=== PATIENT | male | born 1955 | race Caucasian/White ===

== ENCOUNTER 2018-03-13 06:28 | Day surgery (SDC) | payer BC ==
[2018-03-13] MEDS ORDERED: Ringers Lactate 1,000 ML IV ONE (06:41)
[2018-03-13] MEDS ORDERED: LIDOCAINE 1% MPF 5 ML VIAL ONE (07:30)
[2018-03-13] MEDS ORDERED: PROPOFOL 200 MG/20 ML VIAL IV ONE (07:30)
--- NOTE | 2018-03-13 08:43 | ENDO RPT ---
[address], [address] COLONOSCOPY PROCEDURE REPORT EXAM DATE: 03/13/2018 PATIENT NAME: Dominick Rae MR #: [id number] BIRTHDATE: 1955 ATTENDING: Cody Sesay MD STATUS: outpatient FINANCIAL ANALYSIS MANAGER: Johanne Esquivel RN and Maria G Ellington INDICATIONS: The patient is a 62 yr old Male here for a colonoscopy due to bright red bleeding PROCEDURE PERFORMED: Colonoscopy MEDICATIONS: Per Anesthesia. ESTIMATED BLOOD LOSS: None CONSENT: The patient understands the risks and benefits of the procedure and understands that these risks include, but are not limited to: sedation, allergic reaction, infection, perforation and/or bleeding. Alternative means of evaluation and treatment include, among others: physical exam, x-rays, and/or surgical intervention. The patient elects to proceed with this endoscopic procedure. DESCRIPTION OF PROCEDURE: During intra-op preparation period all mechanical medical equipment was checked for proper function. Hand hygiene and appropriate measures for infection prevention was taken. Procedure, possible complications, alternatives including, but not limited to possibility of bleeding, perforation, tear, infection, sepsis, need for surgery, need for blood transfusion, were explained to the patient. After the risks, benefits and alternatives of the procedure were thoroughly explained, Informed consent was verified, confirmed and timeout was successfully executed by the treatment team. The patient was placed in the left lateral position. A digital rectal exam was performed and revealed external hemorrhoids. After appropriate level of anesthesia, the scope was passed. The EC-[id number] ([id number]) endoscope was introduced through the anus and advanced to the cecum, which was identified by the ileocecal valve. The quality of the prep was good. The instrument was then slowly withdrawn as the colon was fully examined. Scope withdrawal time was . COLON FINDINGS: Large internal and external hemorrhoids were found. Retroflexed views revealed no abnormalities and Retroflexed views revealed large hemorrhoids. The scope was then completely withdrawn from the patient and the procedure terminated. ADVERSE EVENTS: There were no complications. IMPRESSIONS: 1. Large internal and external hemorrhoids 2. Scattered diverticulum RECOMMENDATIONS: 1. follow-up: office 1 week(s) 2. hemorrhoidal hygiene 3. no seeds in diet RECALL: Return in 5 year(s) for Colonoscopy. Cody Sesay MD eSigned: Cody Sesay MD 03/13/2018 8:42 AM cc: Cody Sesay M.D. CPT CODES: ICD9 CODES: PATIENT NAME: Dominick RaeSiomara MR#: [id number]
[2018-03-13 08:46] VITALS: BP 137/84; TEMP 97.1; O2SAT 99
== END 2018-03-13 08:44 | disposition home or self-care (01) ==
LOC: OR 06:28
PROVIDERS: ATTEND Surgery
PROC: 0DJD8ZZ Inspection of Lower Intestinal Tract, Via Natural or Artificial Opening Endoscopic (ICD-10-PCS; principal; 2018-03-13 07:30)
DX: K64.8 Other hemorrhoids (principal); K64.4 Residual hemorrhoidal skin tags; K57.30 Diverticulosis of large intestine without perforation or abscess without bleeding; K59.00 Constipation, unspecified; Z88.0 Allergy status to penicillin; K62.5 Hemorrhage of anus and rectum

== ENCOUNTER 2019-06-19 00:41 | Emergency (ER) | payer BC, OTHER ==
[2019-06-19] MEDS ORDERED: KETOROLAC 30 MG/ML INJ ONE (03:02)
[2019-06-19] MEDS ORDERED: NA CHLORIDE 0.9% 1,000 ML ONE (03:10)
[2019-06-19 03:57] LABS: Absolute Lymphocytes (CBC) 3.6 K/uL (0.7-4.9); Basophils % 0.9 % (0-1.3); Lymphocytes % 45.6 % (15.3-44.8); MPV 9.4 fL (7.6-11.3); RBC Red Blood Cell Count 4.48 M/uL (4.33-5.43)
[2019-06-19 04:11] LABS: Potassium 3.7 mmol/L (3.5-5.1)
--- NOTE | 2019-06-19 04:11 | ER ---
Nurse's Notes [facility] Name: Dominick Rae Age: 63 yrs Sex: Male : 1955 Arrival Date: 06/19/2019 Time: 00:43 Bed 8 Private MD: Diagnosis: Headache Presentation: 06/19 00:57 Presenting complaint: Patient states: headache x 3 days. Reports taking aspirin with no aa1 relief. States, "The top of my head is just really sensitive to the touch and it radiates down to his neck. Transition of care: patient was not received from another setting of care. Onset of symptoms was June 16, 2019. Risk Assessment: Do you want to hurt yourself or someone else? Patient reports no desire to harm self or others. Initial Sepsis Screen: Does the patient meet any 2 criteria? No. Patient's initial sepsis screen is negative. Does the patient have a suspected source of infection? No. Patient's initial sepsis screen is negative. Care prior to arrival: None. 00:57 Method Of Arrival: Ambulatory aa1 00:57 Acuity: MIMA 4 aa1 Triage Assessment: 01:00 General: Appears in no apparent distress. comfortable, Behavior is calm, cooperative, aa1 appropriate for age. 01:22 Headache History: The patient has had previous headaches and this one is more severe cc3 than previous episodes. Pain: Complains of pain in left ear and left occipital area and left temporal area and left side of the back of head and left frontal area and left parietal area Also complains of no other associated symptoms. Historical: - Allergies: 01:00 PENICILLINS; aa1 - Home Meds: 01:00 Flomax 0.4 mg Oral cp24 1 cap once daily [Active]; aa1 - PMHx: 01:00 enlarged prostate; aa1 - PSHx: 01:00 Appendectomy; aa1 - Immunization history:: Flu vaccine is not up to date. - Social history:: Smoking status: Patient uses tobacco products, smokes one-half pack cigarettes per day. - Ebola Screening: : Patient denies exposure to infectious person Patient denies travel to an Ebola-affected area in the 21 days before illness onset. Screenin:22 Abuse screen: Denies threats or abuse. Denies injuries from another. Nutritional cc3 screening: No deficits noted. Tuberculosis screening: No symptoms or risk factors identified. Fall Risk Ambulatory Aid- None/Bed Rest/Nurse Assist (0 pts). Gait- Normal/Bed Rest/Wheelchair (0 pts) Mental Status- Oriented to own ability (0 pts). Assessment: 01:22 General: Appears in no apparent distress. uncomfortable, Behavior is calm, cooperative, cc3 appropriate for age. Pain: Complains of pain in left occipital area and left temporal area and left side of the back of head and left frontal area and left parietal area Pain currently is 5 out of 10 on a pain scale. Quality of pain is described as aching, Pain began 2-3 days ago. Neuro: Level of Consciousness is awake, alert, obeys commands, Oriented to person, place, time, situation, Appropriate for age. Cardiovascular: Denies chest pain, Heart tones S1 S2 present Capillary refill < 3 seconds in bilateral fingers Patient's skin is warm and dry. Respiratory: Airway is patent Respiratory effort is even, unlabored, Respiratory pattern is regular, symmetrical, Breath sounds are clear bilaterally. GI: Abdomen is round non-distended. : No signs and/or symptoms were reported regarding the genitourinary system. EENT: No signs and/or symptoms were reported regarding the EENT system. Derm: Skin is intact, is healthy with good turgor, Skin is pink, warm \\T\\ dry. normal. Musculoskeletal: Circulation, motion, and sensation intact. Range of motion: intact in all extremities. 02:10 Reassessment: Patient appears in no apparent distress at this time. Patient and/or cc3 family updated on plan of care and expected duration. Pain level reassessed. Patient is alert, oriented x 3, equal unlabored respirations, skin warm/dry/pink. Patient came back from CT scan department, awaiting result. 03:31 Reassessment: Patient appears in no apparent distress at this time. Patient and/or cc3 family updated on plan of care and expected duration. Pain level reassessed. Patient is alert, oriented x 3, equal unlabored respirations, skin warm/dry/pink. 04:28 Reassessment: Patient appears in no apparent distress at this time. Patient and/or cc3 family updated on plan of care and expected duration. Pain level reassessed. Patient is alert, oriented x 3, equal unlabored respirations, skin warm/dry/pink. ROBBIN Barajas discharged the patient home with prescriptions given. IV cannula removed and patient left ER vitally stable and ambulatory with his . No valuables left in the patient's room. Patient denies pain at this time. Patient states feeling better. Patient states symptoms have improved. Vital Signs: 01:00 BP 126 / 82; Pulse 57; Resp 16; Temp 98.1; Pulse Ox 97% on R/A; Weight 77.11 kg; Height aa1 5 ft. 8 in. (172.72 cm); Pain 5/10; 02:18 BP 127 / 88; Pulse 62; Resp 15 S; Pulse Ox 96% on R/A; cc3 03:20 BP 125 / 84; Pulse 58; Resp 16 S; Pulse Ox 97% on R/A; cc3 04:15 BP 120 / 77; Pulse 61; Resp 16 S; Pulse Ox 96% on R/A; Pain 0/10; cc3 01:00 Body Mass Index 25.85 (77.11 kg, 172.72 cm) aa1 David Coma Score: 04:12 Eye Response: spontaneous(4). Verbal Response: oriented(5). Motor Response: obeys snw commands(6). Total: 15. ED Course: 00:43 Patient arrived in ED. ag3 00:59 Triage completed. aa1 01:00 Arm band placed on right wrist. aa1 01:22 [facility]. snw 01:22 Carlos Ortiz MD is Attending Physician. snw 01:22 Marisela Quiroz is Primary Nurse. cc3 01:22 Patient has correct armband on for positive identification. Bed in low position. Call cc3 light in reach. Side rails up X 1. Pulse ox on. NIBP on. 02:26 CT Head Brain wo Cont In Process Unspecified. EDMS 02:27 CT completed. Patient tolerated procedure well. Patient moved to CT via wheelchair. Patient moved back from CT. 03:15 Inserted saline lock: 20 gauge in right antecubital area, using aseptic technique. cc3 Blood collected. 04:09 Parvez Arreaga MD is Referral Physician. snw 04:27 No provider procedures requiring assistance completed. IV discontinued, intact, cc3 bleeding controlled, No redness/swelling at site. Pressure dressing applied. Administered Medications: 03:07 CANCELLED (Other Intervention Used): TORadol 30 mg IM once snw 03:15 Drug: TORadol - Ketorolac 15 mg Route: IVP; Site: right antecubital; cc3 04:15 Follow up: Response: No adverse reaction; Pain is decreased cc3 03:15 Drug: NS 0.9% 1000 ml Route: IV; Rate: 1 bolus; Site: right antecubital; cc3 04:15 Follow up: Response: No adverse reaction; IV Status: Completed infusion; IV Intake: cc3 1000ml Intake: 04:15 IV: 1000ml; Total: 1000ml. cc3 Outcome: 04:10 Discharge ordered by MD. snw 04:28 Discharged to home ambulatory, with family. cc3 04:28 Condition: stable 04:28 Discharge instructions given to patient, family, Instructed on discharge instructions, follow up and referral plans. medication usage, Demonstrated understanding of instructions, follow-up care, medications, Prescriptions given X 2. 04:31 Patient left the ED. cc3 Signatures: Dispatcher [employer] EDMS Odalis Caceres RN RN aa1 Jenn Dougherty, MANAGER UNION-C MANAGER UNION-Csnw Gomez Casper Charlene cc3 Vanna Lomax3
--- NOTE | 2019-06-19 04:12 | EDPHYS ---
Physician Documentation [facility] Name: Dominick Rae Age: 63 yrs Sex: Male : 1955 Arrival Date: 06/19/2019 Time: 00:43 Bed 8 Private MD: ED Physician Carlos Ortiz HPI: 06/19 01:44 This 63 yrs old Male presents to ER via Ambulatory with complaints of snw Headache. 01:44 The patient complains of pain to the top of head and left side of head and face. The snw patient describes the headache as tenderness. Onset: The symptoms/episode began/occurred gradually, 2 day(s) ago, and became persistent. Associated signs and symptoms: Pertinent positives: dizziness. Severity of symptoms: At its worst the pain was moderate. Headache History: Denies prior headaches. The symptoms are alleviated by nothing. The patient has experienced a previous episode. The patient has not recently seen a physician, the patient's primary care provider is Dr. Dr. Gan. Historical: - Allergies: 01:00 PENICILLINS; aa1 - Home Meds: 01:00 Flomax 0.4 mg Oral cp24 1 cap once daily [Active]; aa1 - PMHx: 01:00 enlarged prostate; aa1 - PSHx: 01:00 Appendectomy; aa1 - Immunization history:: Flu vaccine is not up to date. - Social history:: Smoking status: Patient uses tobacco products, smokes one-half pack cigarettes per day. - Ebola Screening: : Patient denies exposure to infectious person Patient denies travel to an Ebola-affected area in the 21 days before illness onset. ROS: 01:43 Constitutional: Negative for fever, chills, and weight loss, Eyes: Negative for injury, snw pain, redness, and discharge, ENT: Negative for injury, pain, and discharge, Neck: Negative for injury, pain, and swelling, Cardiovascular: Negative for chest pain, palpitations, and edema, Respiratory: Negative for shortness of breath, cough, wheezing, and pleuritic chest pain, Abdomen/GI: Negative for abdominal pain, nausea, vomiting, diarrhea, and constipation, Back: Negative for injury and pain, : Negative for injury, bleeding, discharge, and swelling, MS/Extremity: Negative for injury and deformity, Skin: Negative for injury, rash, and discoloration. 01:43 Psych: Negative for depression, anxiety, suicide ideation, homicidal ideation, and hallucinations. 01:43 Neuro: Positive for headache, of the left parietal area, left frontal area, left side of the back of head, left temporal area, left occipital area and left ear. Exam: :43 Constitutional: This is a well developed, well nourished patient who is awake, alert, snw and in no acute distress. Head/Face: Normocephalic, atraumatic. Eyes: Pupils equal round and reactive to light, extra-ocular motions intact. Lids and lashes normal. Conjunctiva and sclera are non-icteric and not injected. Cornea within normal limits. Periorbital areas with no swelling, redness, or edema. ENT: Nares patent. No nasal discharge, no septal abnormalities noted. Tympanic membranes are normal and external auditory canals are clear. Oropharynx with no redness, swelling, or masses, exudates, or evidence of obstruction, uvula midline. Mucous membranes moist. Neck: Trachea midline, no thyromegaly or masses palpated, and no cervical lymphadenopathy. Supple, full range of motion without nuchal rigidity, or vertebral point tenderness. No Meningismus. Chest/axilla: Normal chest wall appearance and motion. Nontender with no deformity. No lesions are appreciated. Cardiovascular: Regular rate and rhythm with a normal S1 and S2. No gallops, murmurs, or rubs. Normal PMI, no JVD. No pulse deficits. Respiratory: Lungs have equal breath sounds bilaterally, clear to auscultation and percussion. No rales, rhonchi or wheezes noted. No increased work of breathing, no retractions or nasal flaring. Abdomen/GI: Soft, non-tender, with normal bowel sounds. No distension or tympany. No guarding or rebound. No evidence of tenderness throughout. Back: No spinal tenderness. No costovertebral tenderness. Full range of motion. Skin: Warm, dry with normal turgor. Normal color with no rashes, no lesions, and no evidence of cellulitis. MS/ Extremity: Pulses equal, no cyanosis. Neurovascular intact. Full, normal range of motion. Neuro: Awake and alert, GCS 15, oriented to person, place, time, and situation. Cranial nerves II-XII grossly intact. Motor strength 5/5 in all extremities. Sensory grossly intact. Cerebellar exam normal. Normal gait. Psych: Awake, alert, with orientation to person, place and time. Behavior, mood, and affect are within normal limits. Vital Signs: 01:00 BP 126 / 82; Pulse 57; Resp 16; Temp 98.1; Pulse Ox 97% on R/A; Weight 77.11 kg; Height aa1 5 ft. 8 in. (172.72 cm); Pain 5/10; 02:18 BP 127 / 88; Pulse 62; Resp 15 S; Pulse Ox 96% on R/A; cc3 03:20 BP 125 / 84; Pulse 58; Resp 16 S; Pulse Ox 97% on R/A; cc3 04:15 BP 120 / 77; Pulse 61; Resp 16 S; Pulse Ox 96% on R/A; Pain 0/10; cc3 01:00 Body Mass Index 25.85 (77.11 kg, 172.72 cm) aa1 [place] Coma Score: 04:12 Eye Response: spontaneous(4). Verbal Response: oriented(5). Motor Response: obeys snw commands(6). Total: 15. MDM: 01:28 Patient medically screened. snw 04:12 Data reviewed: vital signs, nurses notes. Data interpreted: Pulse oximetry: on room air snw is 97 %. Interpretation: normal. Counseling: I had a detailed discussion with the patient and/or guardian regarding: the historical points, exam findings, and any diagnostic results supporting the discharge/admit diagnosis, lab results, radiology results, the need for outpatient follow up, to return to the emergency department if symptoms worsen or persist or if there are any questions or concerns that arise at home. Special discussion: Based on the history and exam findings, there is no indication for further emergent testing or inpatient evaluation. I discussed with the patient/guardian the need to see the neurologist for further evaluation of the symptoms. I discussed with the patient/guardian the need to see the primary care provider for further evaluation of the symptoms. 06/19 03:07 Order name: CBC with Diff snw 06/19 03:07 Order name: Chem 7; Complete Time: 04:13 snw 06/19 01:37 Order name: CT Head Brain wo Cont snw 06/19 03:07 Order name: Sed Rate snw Administered Medications: 03:07 CANCELLED (Other Intervention Used): TORadol 30 mg IM once snw 03:15 Drug: TORadol - Ketorolac 15 mg Route: IVP; Site: right antecubital; cc3 04:15 Follow up: Response: No adverse reaction; Pain is decreased cc3 03:15 Drug: NS 0.9% 1000 ml Route: IV; Rate: 1 bolus; Site: right antecubital; cc3 04:15 Follow up: Response: No adverse reaction; IV Status: Completed infusion; IV Intake: cc3 1000ml Disposition: 05:15 Co-signature as Attending Physician, Carlos Ortiz MD Available for consultation at ps1 all times . Disposition: 06/19/19 04:10 Discharged to Home. Impression: Headache. - Condition is Stable. - Discharge Instructions: Dizziness, General Headache Without Cause, Rehydration, Adult. - Prescriptions for Fiorinal 50- 325-40 mg Oral Capsule - take 1 capsule by ORAL route every 4 hours As needed - not to exceed 6 capsules per day; 18 capsule. Zyrtec 10 mg Oral Tablet - take 1 tablet by ORAL route once daily As needed; 20 tablet. - Medication Reconciliation Form, Thank You Letter, Antibiotic Education, Prescription Opioid Use form. - Follow up: Private Physician; When: Tomorrow; Reason: Recheck today's complaints, Re-evaluation by your physician. Follow up: Parvez Arreaga MD; When: 5 - 6 days; Reason: Recheck today's complaints, Continuance of care. - Problem is new. - Symptoms are unchanged. Signatures: Dispatcher [employer] EDMS Odalis Caceres RN RN aa1 Jenn Dougherty, PATYC MANAGER OF REGULATORY AFFAIRS-Carlos Lynn MD MD ps1 Marisela Quiroz cc3 Corrections: (The following items were deleted from the chart) 03:07 02:55 TORadol 30 mg IM once ordered. snw snw 03:07 03:06 TORadol 30 mg IM once ordered. snw snw 04:31 04:10 06/19/2019 04:10 Discharged to Home. Impression: Headache. Condition is Stable. cc3 Forms are Medication Reconciliation Form, Thank You Letter, Antibiotic Education, Prescription Opioid Use. Follow up: Private Physician; When: Tomorrow; Reason: Recheck today's complaints, Re-evaluation by your physician. Follow up: Parvez Arreaga; When: 5 - 6 days; Reason: Recheck today's complaints, Continuance of care. Problem is new. Symptoms are unchanged. snw
[2019-06-19 05:06] VITALS: BP 126/82; TEMP 98.1; O2SAT 97
--- NOTE | 2019-06-19 10:46 | RAD REPORT ---
EXAM DESCRIPTION: Head Brain Wo Cont CLINICAL HISTORY: 63 years Male headache/dizziness COMPARISON: None TECHNIQUE: Contiguous axial images of the brain were obtained without the administration of intraven ous contrast.This exam was performed according to our departmental dose-optimization program which in cludes use of Automated Exposure Control, adjustment of the mA and/or kV according to patient size an d/or use of iterative reconstruction technique. FINDINGS: Brain: No acute intracranial hemorrhage. No extra-axial collection. No mass effect or kory iation. Mild prominence of the frontoparietal sulci. Confluent periventricular and subcortical whit e matter hypodensity is noted. Ventricles: Within normal limits in size Globes and orbits: No acute abnormality. Bones: No acute osseous finding. Paranasal sinuses: Paranasal sinuses are clear. Mastoid air cells: Well pneumatized. Soft tissues: Within normal limits IMPRESSION: No acute intracranial hemorrhage, hydrocephalus or herniation. Mild cerebral volume loss and chronic small vessel ischemic changes. If persistent clinical concern for acute ischemia, consider MRI brain without contrast for further ev aluation. Electronically signed by: Kyle Land DO 06/19/2019 2:31 AM CDT Due to temporary technical issues with the PACS/Fluency reporting system, reports are being signed by the in house radiologist as a courtesy to ensure prompt reporting. The interpreting radiologist is f ully responsible for the content of the report.
== END 2019-06-19 04:31 | disposition home or self-care (01) ==
LOC: ER 00:41
DX: R51 Headache (principal); F17.210 Nicotine dependence, cigarettes, uncomplicated; N40.0 Benign prostatic hyperplasia without lower urinary tract symptoms; Z88.0 Allergy status to penicillin
CPT/HCPCS: 96361; 85025; 80048; 36415; 85652; 70450; 96374; 99284; J7030

== ENCOUNTER 2022-08-04 03:46 | Emergency (ER) | payer OTHER ==
[2022-08-04 04:35] LABS: Absolute Lymphocytes (CBC) 1.7 K/uL (0.7-4.9); Hematocrit 43.1 % (39.6-49.0); Lymphocytes % 24.9 % (15.3-44.8); MCV 92.5 fL (80-100); MPV 8.3 fL (7.6-11.3); RBC Red Blood Cell Count 4.66 M/uL (4.33-5.43)
[2022-08-04 04:55] LABS: Albumin 3.8 g/dL (3.4-5.0); Bilirubin Total 0.3 mg/dL (0.2-1.0); Potassium 3.6 mmol/L (3.5-5.1); Protein, Total 7.6 g/dL (6.4-8.2)
[2022-08-04 05:06] LABS: Urine Blood Negative (Negative); Urine Glucose Negative (Negative); Urine Protein Negative (Negative)
[2022-08-04] MEDS ORDERED: MORPHINE 4 MG/ML SYR ONE (06:30)
[2022-08-04] MEDS ORDERED: ONDANSETRON 4 MG/2 ML VIAL ONE (06:30)
--- NOTE | 2022-08-04 08:06 | RAD REPORT ---
EXAM DESCRIPTION: CT - Abdomen Pelvis W Contrast - 08/04/2022 7:28 am CLINICAL HISTORY: Abdominal pain, acute, nonlocalized COMPARISON: CT ABD PELVIS W CONTRAST dated 12/27/2011 TECHNIQUE: Biphasic, helical CT imaging of the abdomen and pelvis was performed following 100 ml non -ionic IV contrast. Oral contrast: No. All CT scans are performed using dose optimization technique as appropriate and may include automated exposure control or mA/KV adjustment according to patient size. FINDINGS: No suspicious findings in the lung bases. Small 4-5 mm nodule posterior right lung base crane s not change from comparison. The liver, spleen, and pancreas show no suspicious findings. Gallbladder and biliary tree are also wi thout suspicious finding. Renal function is symmetric. No pyelonephritis, obstruction or acute renal finding seen. Patient has 2 abutting cyst in the upper pole of the left kidney. The more central cystic 2 centimeter shows isha gn characteristics. The larger abutting cyst is 3.2 cm and has a slightly thickened enhancing wall. T his is new from 2012. This is still likely benign but needs ongoing surveillance. No calcification. N o bladder abnormalities. No adrenal abnormalities. Small hiatal hernia is present. No acute gastric finding. No acute small bowel abnormality identified . Surgical history indicates appendectomy. There has been more involved partial resection of or surge ry in the region of the cecum. There is no active process at this site. Patient has very pronounced s igmoid diverticulosis but no diverticulitis. An active GI process is not seen. No free air, free fluid or inflammatory stranding. No mass or bulky lymphadenopathy. Patient has s mall bilateral fat filled inguinal hernias. These are not substantially different in size from 2012. No congestion or edema. No rent or tear of the abdominal wall in each lower quadrant. No acute bone finding. Bony degenerative changes are present. No acute vascular finding. Patient has aortic aneurysmal dilatation at the level of the XAVIER measuring 2.5 cm AP x 2.9 cm TR. IMPRESSION: Bilateral fat filled inguinal hernias are present similar in size to the 2012 comparison . No bowel involvement. No congestion or edema. No active process seen in either hernia or adjacent a bdominal wall. Complex cyst upper pole left kidney, new from 2012, warranting ongoing surveillance. Follow-up CT im aging in 6 months could be performed to monitor for any growth or changes in imaging characteristics.
--- NOTE | 2022-08-04 08:43 | EDPHYS ---
Physician Documentation [facility] Name: Dominick Rae Age: 67 yrs Sex: Male : 1955 Arrival Date: 08/04/2022 Time: 03:51 Bed 7 Private MD: Manohar Tovar HPI: 08/04 06:20 This 67 yrs old Male presents to ER via Ambulatory with complaints of cale Abdominal Pain. 06:20 The patient presents with abdominal pain right lower quadrant. Onset: The cale symptoms/episode began/occurred 2 day(s) ago. The symptoms do not radiate. Associated signs and symptoms: none. The symptoms are described as crampy. Modifying factors: The symptoms are alleviated by nothing, the symptoms are aggravated by movement. The patient has experienced similar episodes in the past, several times. Historical: - Allergies: 04:16 PENICILLINS; aa9 - PMHx: 04:17 None; aa9 - PSHx: 04:17 Appendectomy; aa9 - Immunization history:: Client reports receiving the 1st dose of the Covid vaccine. - Social history:: Smoking status: Patient/guardian denies using tobacco, the patient reports quitting approximately 1 years ago. - Family history:: not pertinent. ROS: 06:20 Constitutional: Negative for fever, chills, and weight loss, Eyes: Negative for injury, cale pain, redness, and discharge, ENT: Negative for injury, pain, and discharge, Neck: Negative for injury, pain, and swelling, Cardiovascular: Negative for chest pain, palpitations, and edema, Respiratory: Negative for shortness of breath, cough, wheezing, and pleuritic chest pain, Back: Negative for injury and pain, : Negative for injury, bleeding, discharge, and swelling, MS/Extremity: Negative for injury and deformity, Skin: Negative for injury, rash, and discoloration, Neuro: Negative for headache, weakness, numbness, tingling, and seizure, Psych: Negative for depression, anxiety, suicide ideation, homicidal ideation, and hallucinations, Allergy/Immunology: Negative for hives, rash, and allergies, Endocrine: Negative for neck swelling, polydipsia, polyuria, polyphagia, and marked weight changes, Hematologic/Lymphatic: Negative for swollen nodes, abnormal bleeding, and unusual bruising. 06:20 Abdomen/GI: Positive for abdominal pain, of the anterior aspect of right lateral abdomen, posterior aspect of right lateral abdomen and right lower quadrant. Exam: 06:20 Constitutional: This is a well developed, well nourished patient who is awake, alert, cale and in no acute distress. Head/Face: Normocephalic, atraumatic. Eyes: Pupils equal round and reactive to light, extra-ocular motions intact. Lids and lashes normal. Conjunctiva and sclera are non-icteric and not injected. Cornea within normal limits. Periorbital areas with no swelling, redness, or edema. ENT: Nares patent. No nasal discharge, no septal abnormalities noted. Tympanic membranes are normal and external auditory canals are clear. Oropharynx with no redness, swelling, or masses, exudates, or evidence of obstruction, uvula midline. Mucous membranes moist. Neck: Trachea midline, no thyromegaly or masses palpated, and no cervical lymphadenopathy. Supple, full range of motion without nuchal rigidity, or vertebral point tenderness. No Meningismus. Chest/axilla: Normal chest wall appearance and motion. Nontender with no deformity. No lesions are appreciated. Cardiovascular: Regular rate and rhythm with a normal S1 and S2. No gallops, murmurs, or rubs. Normal PMI, no JVD. No pulse deficits. Respiratory: Lungs have equal breath sounds bilaterally, clear to auscultation and percussion. No rales, rhonchi or wheezes noted. No increased work of breathing, no retractions or nasal flaring. Back: No spinal tenderness. No costovertebral tenderness. Full range of motion. Male : Normal genitalia with no discharge or lesions. Skin: Warm, dry with normal turgor. Normal color with no rashes, no lesions, and no evidence of cellulitis. MS/ Extremity: Pulses equal, no cyanosis. Neurovascular intact. Full, normal range of motion. Neuro: Awake and alert, GCS 15, oriented to person, place, time, and situation. Cranial nerves II-XII grossly intact. Motor strength 5/5 in all extremities. Sensory grossly intact. Cerebellar exam normal. Normal gait. Psych: Awake, alert, with orientation to person, place and time. Behavior, mood, and affect are within normal limits. 06:20 Abdomen/GI: Inspection: distension, that is mild, Bowel sounds: normal, Palpation: mild abdominal tenderness, in the suprapubic area, Liver: no appreciated palpable abnormalities, Hernia: not appreciated. 08:42 : CVA tenderness, is absent, Male external genitalia: normal, no abrasion, no cale discharge, no erythema, no injury, no swelling, no tenderness, no evidence of ulceration, Bladder: is normal, Sexual behavior: the patient is sexually active, and reports a single partner. Vital Signs: 04:15 Weight 77.11 kg (R); Height 5 ft. 8 in. (172.72 cm) (R); Pain 8/10; aa9 04:21 BP 143 / 91; Pulse 69; Resp 15 S; Temp 98.6(O); Pulse Ox 95% on R/A; aa9 05:00 BP 125 / 90; Pulse 70; Resp 20; Pulse Ox 96% on R/A; tw5 05:15 BP 127 / 86; Pulse 63; Resp 18 S; Pulse Ox 95% on R/A; aa9 06:32 BP 146 / 92; Pulse 57; Resp 14; Pulse Ox 97% on R/A; tw5 07:00 BP 129 / 110; Pulse 70; Resp 15 S; Pulse Ox 95% on R/A; aa9 08:00 BP 109 / 74; Pulse 62; Resp 16; Pulse Ox 98% on R/A; mb9 09:01 BP 121 / 85; Pulse 54; Resp 16; Pulse Ox 96% ; bp 04:15 Body Mass Index 25.85 (77.11 kg, 172.72 cm) aa9 MDM: 05:41 Patient medically screened. cale 06:22 Differential diagnosis: cholecystitis, Cholelithiasis, diverticulitis, gastritis, cale non-specific abd pain, Peptic Ulcer Disease, Prostatitis, Pyelonephritis, Ureterolithiasis. Data reviewed: vital signs, nurses notes, lab test result(s), radiologic studies, CT scan. Data interpreted: Pulse oximetry: on room air is 95 %. Counseling: I had a detailed discussion with the patient and/or guardian regarding: the historical points, exam findings, and any diagnostic results supporting the discharge/admit diagnosis, lab results, radiology results, the need for outpatient follow up, for definitive care, a general surgeon. 08/04 03:57 Order name: CBC with Diff; Complete Time: 06:17 kdr 08/04 03:57 Order name: CMP; Complete Time: 06:17 kdr 08/04 03:57 Order name: Lipase; Complete Time: 06:17 kdr 08/04 05:06 Order name: Urine Dipstick-Ancillary; Complete Time: 06:17 EDMS 08/04 06:19 Order name: CT Abd/Pelvis - IV Contrast Only cale 08/04 06:23 Order name: Abdomen ; Complete Time: 08:38 EDMS 08/04 03:57 Order name: IV Saline Lock; Complete Time: 04:24 kdr 08/04 03:57 Order name: Labs collected and sent; Complete Time: 04:24 kdr 08/04 03:57 Order name: Urine Dipstick-Ancillary (obtain specimen); Complete Time: 05:00 kdr Administered Medications: 06:31 Drug: Zofran (Ondansetron) 4 mg Route: IVP; Site: right antecubital; tw5 09:03 Follow up: Response: No adverse reaction bp 06:34 Drug: morphine 4 mg Route: IVP; Infused Over: 4 mins; Site: right antecubital; tw5 09:03 Follow up: Response: No adverse reaction bp Disposition Summary: 08/04/22 08:42 Discharge Ordered Location: Home cale Problem: new cale Symptoms: have improved cale Condition: Stable cale Diagnosis - Abdominal pain, unspecified cale - Bilateral inguinal hernia, without obstruction or gangrene, not specified as cale recurrent Followup: cale - With: Private Physician - When: 2 - 3 days - Reason: Recheck today's complaints, Continuance of care, Re-evaluation by your physician Followup: cale - With: - When: 2 - 3 days - Reason: Recheck today's complaints, Continuance of care, Re-evaluation by your physician Discharge Instructions: - Discharge Summary Sheet cale - Abdominal Pain, Adult cale - Hernia, Adult cale - Inguinal Hernia, Adult, [id number] cale - Abdominal Pain, Adult, [id number] cale - Hernia, Adult, [id number] cale - Inguinal Hernia, Adult cale Forms: - Medication Reconciliation Form cale - Thank You Letter cale - Antibiotic Education cale - Prescription Opioid Use cale Prescriptions: - Zofran 4 mg Oral Tablet - take 1 tablet by ORAL route every 12 hours As needed; 20 tablet; Refills: 0, cale Product Selection Permitted - dicyclomine 20 mg Oral Tablet - take 1 tablet by ORAL route 4 times per day; 28 tablet; Refills: 0, Product cale Selection Permitted Signatures: Dispatcher [employer] EDManohar Orozco MD MD cha Rittger, Kevin, MD MD kdr Wood, Tiffany tw5 Jessa Bosch RN RN aa9 John Dominguez RN bp Corrections: (The following items were deleted from the chart) 04:17 04:16 PMHx: enlarged prostate; aa9 aa9
--- NOTE | 2022-08-04 08:43 | ER ---
Nurse's Notes [facility] Name: Dominick Rae Age: 67 yrs Sex: Male : 1955 Arrival Date: 08/04/2022 Time: 03:51 Bed 7 Private MD: Diagnosis: Abdominal pain, unspecified;Bilateral inguinal hernia, without obstruction or gangrene, not specified as recurrent Presentation: 08/04 04:15 Chief complaint: Patient states: Dr Sesay notified me I have a hernia near my groin aa9 on my right side, He said not to heavy lift but I did and now it hurts, but I've been having this pain for weeks now. Coronavirus screen: Vaccine status: Patient reports receiving the 1st dose of the Covid vaccine. Ebola Screen: No symptoms or risks identified at this time. Initial Sepsis Screen: Does the patient meet any 2 criteria? No. Patient's initial sepsis screen is negative. Does the patient have a suspected source of infection? No. Patient's initial sepsis screen is negative. Risk Assessment: Do you want to hurt yourself or someone else? Patient reports no desire to harm self or others. Onset of symptoms was August 04, 2022. 04:15 Method Of Arrival: Ambulatory aa9 04:15 Acuity: MIMA 3 aa9 Triage Assessment: 04:18 General: Appears uncomfortable, slender, Behavior is calm, cooperative, appropriate for aa9 age. Pain: Quality of pain is described as burning. Pain: Complains of pain in right femoral area Pain currently is 8 out of 10 on a pain scale. Noted to be grimacing. Neuro: Level of Consciousness is awake, alert, obeys commands, Oriented to person, place, time, situation. Cardiovascular: Patient's skin is warm and dry. Respiratory: Airway is patent Respiratory effort is even, unlabored. : No signs and/or symptoms were reported regarding the genitourinary system. Derm: Skin is intact, is healthy with good turgor. Historical: - Allergies: 04:16 PENICILLINS; aa9 - PMHx: 04:17 None; aa9 - PSHx: 04:17 Appendectomy; aa9 - Immunization history:: Client reports receiving the 1st dose of the Covid vaccine. - Social history:: Smoking status: Patient/guardian denies using tobacco, the patient reports quitting approximately 1 years ago. - Family history:: not pertinent. Screenin:19 Abuse screen: Denies threats or abuse. Denies injuries from another. Nutritional aa9 screening: No deficits noted. Tuberculosis screening: No symptoms or risk factors identified. Fall Risk None identified. Assessment: 04:23 GI: Abd is soft X 4 quads Abd is non tender X 4 quads. aa9 05:00 Reassessment: No changes from previously documented assessment. Patient and/or family tw5 updated on plan of care and expected duration. Pain level reassessed. Patient is alert, oriented x 3, equal unlabored respirations, skin warm/dry/pink. 06:32 Pain: Pain currently is 5 out of 10 on a pain scale. GI: Abdomen is flat, non-distended.tw5 07:00 Reassessment: report received from TALAT Cartwright. mb9 07:30 General: Appears in no apparent distress. comfortable, Behavior is calm, cooperative, mb9 appropriate for age. Pain: Complains of pain in RLQ and LLQ Pain does not radiate. Pain currently is 3 out of 10 on a pain scale. Quality of pain is described as aching, Pain began 1 day ago. Aggravated by increased activity. Neuro: Level of Consciousness is awake, alert, obeys commands, Oriented to person, place, time, situation, Appropriate for age. Cardiovascular: Heart tones S1 S2 present Rhythm is regular. Respiratory: Airway is patent Respiratory effort is even, unlabored, Respiratory pattern is regular, symmetrical, Breath sounds are clear bilaterally. GI: Abdomen is flat, non-distended, Bowel sounds present X 4 quads. Abd is soft Abdomen is tender to palpation in right lower quadrant and left lower quadrant. : No signs and/or symptoms were reported regarding the genitourinary system. EENT: No signs and/or symptoms were reported regarding the EENT system. Derm: Skin is pink, warm \T\ dry. 09:01 Reassessment: PT DC HOME AMBULATORY. bp Vital Signs: 04:15 Weight 77.11 kg (R); Height 5 ft. 8 in. (172.72 cm) (R); Pain 8/10; aa9 04:21 BP 143 / 91; Pulse 69; Resp 15 S; Temp 98.6(O); Pulse Ox 95% on R/A; aa9 05:00 BP 125 / 90; Pulse 70; Resp 20; Pulse Ox 96% on R/A; tw5 05:15 BP 127 / 86; Pulse 63; Resp 18 S; Pulse Ox 95% on R/A; aa9 06:32 BP 146 / 92; Pulse 57; Resp 14; Pulse Ox 97% on R/A; tw5 07:00 BP 129 / 110; Pulse 70; Resp 15 S; Pulse Ox 95% on R/A; aa9 08:00 BP 109 / 74; Pulse 62; Resp 16; Pulse Ox 98% on R/A; mb9 09:01 BP 121 / 85; Pulse 54; Resp 16; Pulse Ox 96% ; bp 04:15 Body Mass Index 25.85 (77.11 kg, 172.72 cm) aa9 ED Course: 03:51 Patient arrived in ED. bp1 03:57 Misael Davis MD is Attending Physician. kdr 04:15 Jessa Bosch RN is Primary Nurse. aa9 04:16 Triage completed. aa9 04:19 Arm band placed on right wrist. aa9 04:24 Inserted saline lock: 20 gauge in right antecubital area, using aseptic technique. aa9 Blood collected. 04:24 CBC with Diff Sent. aa9 04:24 CMP Sent. aa9 04:24 Lipase Sent. aa9 04:27 No provider procedures requiring assistance completed. tw5 05:41 Attending Physician role handed off by Misael Davis MD cale 05:41 Manohar Sharma MD is Attending Physician. cale 07:00 Placed in gown. Bed in low position. Call light in reach. Side rails up X 1. mb9 07:00 Client placed on continuous cardiac and pulse oximetry monitoring. NIBP monitoring mb9 applied. monitoring specialist on. 07:24 Primary Nurse role handed off by Jessa Bosch, TALAT mb9 07:24 Alexandra Beatty, TALAT is Primary Nurse. mb9 07:30 Abdomen In Process Unspecified. EDMS 08:07 Primary Nurse role handed off by Alexandra Beatty, RN tw5 08:07 Gabbie Bell is Primary Nurse. tw5 08:37 Primary Nurse role handed off by Gabbie Bell eb 08:41 Cody Sesay MD is Referral Physician. cale 09:00 Alberto, John, RN is Primary Nurse. bp 09:01 IV discontinued, intact, bleeding controlled, No redness/swelling at site. Pressure bp dressing applied. Administered Medications: 06:31 Drug: Zofran (Ondansetron) 4 mg Route: IVP; Site: right antecubital; tw5 09:03 Follow up: Response: No adverse reaction bp 06:34 Drug: morphine 4 mg Route: IVP; Infused Over: 4 mins; Site: right antecubital; tw5 09:03 Follow up: Response: No adverse reaction bp Medication: 08:25 VIS not applicable for this client. mb9 Outcome: 08:42 [facility] Discharged to home ambulatory. bp 09:01 Condition: stable 09:01 Discharge instructions given to patient, Instructed on discharge instructions, follow up and referral plans. medication usage, Demonstrated understanding of instructions, follow-up care, medications, Prescriptions given X 2. 09:06 Patient left the ED. mb9 Signatures: Dispatcher [employer] EDMS Manohar Sharma MD MD cha Rittger, Kevin, MD MD kdr Peltier, Brian, RN RN bp Natacha Shaffer Brittany bp1 Wood, Tiffany tw5 Jessa Bosch RN RN aa9 Alexandra Beatty RN RN mb9 Corrections: (The following items were deleted from the chart) 04:17 04:16 PMHx: enlarged prostate; aa9 aa9 04:21 04:15 Chief complaint: Patient states: Dr Sesay notified me I have a hernia near my aa9 groin on my right side, He said not to heavy lift but I did and now it hurts aa9 04:23 04:18 Pain: Complains of pain in right femoral area Pain currently is 8 out of 10 on a aa9 pain scale. Noted to be grimacing, aa9
[2022-08-04 09:44] VITALS: TEMP 98.6
[2022-08-04 10:00] VITALS: BP 121/85; O2SAT 96
== END 2022-08-04 09:06 | disposition home or self-care (01) ==
LOC: ER 03:46
DX: K40.20 Bilateral inguinal hernia, without obstruction or gangrene, not specified as recurrent (principal); Z88.0 Allergy status to penicillin
CPT/HCPCS: 85025; 36415; 81003; 83690; 80053; 74177; 96375; 96374; 99284; Q9967; J2405

== ENCOUNTER 2022-08-23 08:32 | Day surgery (SDC) | payer OTHER ==
--- NOTE | 2022-08-21 17:04 | RAD REPORT ---
EXAM DESCRIPTION: Mariluz Hughes And Chuy (2 Views)08/21/2022 4:58 pm CLINICAL HISTORY: Preop hernia surgery. COMPARISON: November 2021 FINDINGS: The lungs appear clear of acute infiltrate. The heart is normal size IMPRESSION: No acute abnormalities displayed
--- NOTE | 2022-08-22 08:38 | EKG ---
Test Date: 2022-08-21 Test Time: 16:42:09 Cleaning Attendant: FARZAD MEASUREMENT RESULTS: Intervals: Rate: 62 WA: 150 QRSD: 94 QT: 414 QTc: 420 [place]: P: 37 WA: 150 QRS: 30 T: 67 INTERPRETIVE STATEMENTS: Normal sinus rhythm with sinus arrhythmia Normal ECG Compared to ECG 03/25/2013 21:35:35 No significant changes Electronically Signed On 08-22-22 08:34:42 STOCK PATCHER by Khurram Carmona
[2022-08-23] MEDS ORDERED: Ringers Lactate 1,000 ML IV ONE (08:43)
[2022-08-23] MEDS ORDERED: CIPROFLOXACIN 400mg IV 400 MG/200 ML BAG IV ONE (08:43)
[2022-08-23] MEDS ORDERED: ACETAMINOPHEN 500 MG TAB ONE (09:01)
[2022-08-23] MEDS ORDERED: CELECOXIB 100 MG CAPSULE ONE (09:01)
[2022-08-23] MEDS ORDERED: MIDAZOLAM HCL 2 MG/2 ML INJ ONE (09:05)
[2022-08-23] MEDS ORDERED: FENTANYL CITR 100 MCG/2 ML ONE (09:05)
[2022-08-23] MEDS ORDERED: propofoL 200 MG/20 ML VIAL IV ONE (09:05)
[2022-08-23] MEDS ORDERED: ROCURONIUM 50 MG/5 ML VIAL IV ONE (09:05)
[2022-08-23] MEDS ORDERED: LIDOCAINE 2% MPF 5 ML VIAL ONE (09:10)
[2022-08-23] MEDS ORDERED: ONDANSETRON 4 MG/2 ML VIAL ONE (09:10)
[2022-08-23] MEDS ORDERED: dexAMETHasone 10 MG/ML VIAL ONE (10:10)
[2022-08-23] MEDS ORDERED: KETOROLAC 30 MG/ML INJ ONE (10:15)
--- NOTE | 2022-08-23 10:26 | P.BOP ---
Preoperative diagnosis: bilateral tender reducible inguinal hernias Postoperative diagnosis: same Primary procedure: Laparoscopic repair of bilateral inguinal hernias with mesh Paint Process Engineer: TARYN CUBA (MONUMENTAL STONEMASON) Estimated blood loss: <10cc Specimen: none Findings: as above Anesthesia: General Complications: None Implants: 3D mesh right and left Transferred to: Recovery Room Condition: Good
[2022-08-23] MEDS: HYDROMORPHONE HCL 1 MG/ML INJ ONE ×2 (10:55→11:00)
[2022-08-23] MEDS ORDERED: HYDROCODONE/APAP 10/325 TAB ONE (11:41)
[2022-08-23] MEDS ORDERED: TAMSULOSIN 0.4 MG SR CAP ONE (11:41)
[2022-08-23 11:50] VITALS: BP 137/87; TEMP 97; O2SAT 99
--- NOTE | 2022-08-23 19:52 | OP ---
Date of Procedure: 08/23/2022 Surgeon: Cody Sesay MD Museum Preparator: HERNAN Tamayo. Preoperative Diagnosis: Bilateral tender reducible inguinal hernias. Postoperative Diagnosis: Bilateral tender reducible inguinal hernias. Procedure: Laparoscopic repair of right and left inguinal hernias with mesh. Estimated Blood Loss: Less than 10 cc. Specimen: None. Findings: Right and left inguinal hernia. Anesthesia: General plus local. Complications: None. Implants: A 3D mesh medium, right and left. Indications: This is the case of a 67-year-old patient who comes to us with bilateral inguinal herni as. He has an infraumbilical incision and lower ventral incision from previous complicated open appe ndectomy. He still wants us to attempt a possible laparoscopic surgery. It is possible, although he might have to be ready also for open technique with benefits, alternatives, and risks including, but not limited to infection, bleeding, damage to adjacent structures, anesthesia complication, recurren ce, [place], and even . He also understands this may not relieve his symptoms and he might need more than one surgical intervention. He also understand we will be using mesh in that region and pros an d cons of mesh placement were discussed with the patient and all the questions were answered to his s atisfaction. He signed a consent. Procedure In Detail: The patient was brought to the operating room and placed in supine position. A nesthesia was given without complication. Bilateral abdomen and inguinal region were prepped and joan ped in usual sterile fashion. Local anesthesia was applied. We have to select the incisions on him since he has a midline incision and the lower ventral region from the bellybutton to the suprapubic a mahad, but we were able to make an incision in the middle and then looked our way to the right side and opened the anterior rectus sheath and be able to retract the anterior rectus sheath and find the pos terior rectus sheath. Once we have that, we were able to place the balloon tip trocar in that area, directed to the pubis symphysis and then after putting a laparoscope in that region, we proceeded to inflate the balloon under direct visualization to create the extraperitoneal space. Once we have maritza t, the balloon was deflated and removed under direct visualization. At that moment, I put the camera s once again and we put a 5 mm trocar just above the pubis symphysis and another one senior living between the first and the second one. The preperitoneal space was further developed by exposing the inferior epigastric vessels keeping them anterior. Dex ligament was dissected laterally to the junction w ith the iliac veins. The dissection continued inferiorly to the iliopubic tract avoiding damage to t he femoral branch of the genitofemoral nerve and lateral femoral cutaneous nerve. The cord structure s were carefully skeletonized. We noticed a hernia sac present, it is a direct hernia with a fatty c ontent and lipoma going through the defect. So carefully we reduced that hernia sac, making sure the content goes back into the peritoneal cavity. The spermatic cord structures were protected at all t imes. After that, we directed our attention to the opposite side. We have to remember that we have a midline incision, but we were able to go around those adhesions and then identified and create the opening on the left side. At that moment, once again, the preperitoneal space once developed, we mad e sure the inferior epigastric vessels stayed anterior and then Dex ligament was dissected lateral ly to a junction with the iliac veins. The dissection continued inferiorly to the iliopubic tract av oiding damage to the femoral branch of the genitofemoral nerve and lateral femoral cutaneous nerve. The cord structures were skeletonized. The hernia sac was identified and reduced back into the abdom inal cavity after being fully inspected. At that moment, I proceeded to introduce into the working s pace, a 3D mesh medium size that fit properly right in that area. We proceeded to open the mesh to c over direct and indirect spaces. The mesh was secured, lateral and superior to the iliopubic tract a nd inferior and medial to the Dex ligament with the help of SorbaFix. Then, we directed our atten tion to the right side. Once again, we put a medium sized the mesh and then once again to cover dire ct and indirect spaces and then we secured that in place lateral and superior to the iliopubic tract and inferior and medial to the Dex ligament with the help of SorbaFix. No bleeding. The area was inspected. We expressed some local anesthetics over that area. Mesh looks nice and easy. Hernia l ooks retracted into the peritoneal cavity. At that moment, while we hold the mesh in place, we proce eded to deflate the space after the insufflation was stopped. The anterior rectus sheath was closed with the help of #1 Vicryl and the skin with true. Sponge count and instrument counts were correc t. At the end of the case, testicles were in the scrotum. Patient was sent to recovery in stable co ndition. CAROLANN/REMY Voice ID: [id number] Report ID: [id number]
--- NOTE | 2022-08-23 19:52 | DS ---
Date of Discharge: 08/23/2022 Diagnosis: Bilateral tender reducible inguinal hernias. Procedure: Laparoscopic repair of bilateral inguinal hernias with mesh. Disposition: Home. Activity: As tolerated. No heavy lifting. Follow Up: In my office in 1 week. Call for appointment at [phone]. Keep area dry for 48 hours, january shower. Cold compresses to the bilateral inguinal region for 24 hours. CAROLANN/REMY Voice ID: [id number] Report ID: [id number]
== END 2022-08-23 12:25 | disposition home or self-care (01) ==
LOC: OR 08:32
PROVIDERS: ATTEND Surgery
PROC: 0YUA4JZ Supplement Bilateral Inguinal Region with Synthetic Substitute, Percutaneous Endoscopic Approach (ICD-10-PCS; principal; 2022-08-23 10:30)
DX: K40.20 Bilateral inguinal hernia, without obstruction or gangrene, not specified as recurrent (principal); K57.92 Diverticulitis of intestine, part unspecified, without perforation or abscess without bleeding
CPT/HCPCS: 93005; 71046; 49650; J2704; J2001; J2250; J3010; J1100; J1170; J7120; J2405; J0744

== ENCOUNTER 2022-08-25 01:29 | Emergency (ER) | payer OTHER ==
[2022-08-25] MEDS ORDERED: ONDANSETRON 4 MG/2 ML VIAL ONE (02:49)
[2022-08-25] MEDS ORDERED: FAMOTIDINE 20 MG/2 ML VIAL IV ONE (02:49)
[2022-08-25] MEDS ORDERED: MORPHINE 4 MG/ML SYR ONE (02:49)
[2022-08-25] MEDS ORDERED: NA CHLORIDE 0.9% 1,000 ML ONE (02:49)
[2022-08-25 02:52] LABS: Absolute Lymphocytes (CBC) 4.4 K/uL (0.7-4.9); Hematocrit 42.9 % (39.6-49.0); Lymphocytes % 38.4 % (15.3-44.8); MPV 8.4 fL (7.6-11.3); RBC Red Blood Cell Count 4.61 M/uL (4.33-5.43)
[2022-08-25 02:55] LABS: Urine Bacteria <20 /HPF (<20); Urine RBC <5 /HPF (None Seen)
[2022-08-25 03:07] LABS: Albumin 3.8 g/dL (3.4-5.0); Bilirubin Total 0.4 mg/dL (0.2-1.0); Potassium 3.8 mmol/L (3.5-5.1); Protein, Total 7.5 g/dL (6.4-8.2)
[2022-08-25 03:21] LABS: Urine Blood Negative (Negative); Urine Glucose Negative (Negative); Urine Protein Negative (Negative); Urine pH 6.5 (5.0-7.0)
--- NOTE | 2022-08-25 05:26 | EDPHYS ---
Physician Documentation [facility] Name: Dominick Rae Age: 67 yrs Sex: Male : 1955 Arrival Date: 08/25/2022 Time: 01:31 Bed 25 Private MD: Manohar Tovar HPI: 08/25 04:36 This 67 yrs old Male presents to ER via Wheelchair with complaints of Post cale Surgical Pain, 3 days post op hernia surgery, severe swelling/pain.. 04:36 The patient presents with abdominal pain in the upper abdomen, in the lower abdomen, cale abdominal distention in the upper abdomen, in the lower abdomen. Onset: The symptoms/episode began/occurred 3 day(s) ago. The patient presents with scrotal pain, swelling, tenderness, of the right testicle, of the right inguinal area. Onset: The symptoms/episode began/occurred 3 day(s) ago. Modifying factors: The symptoms are alleviated by remaining still, supine position, the symptoms are aggravated by movement, pressure. Associated signs and symptoms: The patient has no apparent associated signs or symptoms. The symptoms do not radiate. Associated signs and symptoms: Pertinent positives:. Severity of pain: At its worst the pain was moderate in the emergency department the pain has improved moderately. Historical: - Allergies: 01:46 PENICILLINS; tw5 - Home Meds: 01:46 None [Active]; tw5 - PMHx: 01:46 None; tw5 - PSHx: 01:46 Appendectomy; hernia repair; tw - Immunization history:: Flu vaccine is not up to date. - Social history:: Smoking status: Patient reports the use of cigarette tobacco products, denies chronic smoking, but will smoke occasionally. - Family history:: not pertinent. ROS: 04:36 Constitutional: Negative for fever, chills, and weight loss, Eyes: Negative for injury, cale pain, redness, and discharge, ENT: Negative for injury, pain, and discharge, Neck: Negative for injury, pain, and swelling, Cardiovascular: Negative for chest pain, palpitations, and edema, Respiratory: Negative for shortness of breath, cough, wheezing, and pleuritic chest pain, Abdomen/GI: Negative for abdominal pain, nausea, vomiting, diarrhea, and constipation, Back: Negative for injury and pain, MS/Extremity: Negative for injury and deformity, Skin: Negative for injury, rash, and discoloration, Neuro: Negative for headache, weakness, numbness, tingling, and seizure, Psych: Negative for depression, anxiety, suicide ideation, homicidal ideation, and hallucinations, Allergy/Immunology: Negative for hives, rash, and allergies, Endocrine: Negative for neck swelling, polydipsia, polyuria, polyphagia, and marked weight changes, Hematologic/Lymphatic: Negative for swollen nodes, abnormal bleeding, and unusual bruising. 04:36 : Positive for testicular pain of the right testicle. Exam: 04:36 Constitutional: This is a well developed, well nourished patient who is awake, alert, cale and in no acute distress. Head/Face: Normocephalic, atraumatic. Eyes: Pupils equal round and reactive to light, extra-ocular motions intact. Lids and lashes normal. Conjunctiva and sclera are non-icteric and not injected. Cornea within normal limits. Periorbital areas with no swelling, redness, or edema. ENT: Nares patent. No nasal discharge, no septal abnormalities noted. Tympanic membranes are normal and external auditory canals are clear. Oropharynx with no redness, swelling, or masses, exudates, or evidence of obstruction, uvula midline. Mucous membranes moist. Neck: Trachea midline, no thyromegaly or masses palpated, and no cervical lymphadenopathy. Supple, full range of motion without nuchal rigidity, or vertebral point tenderness. No Meningismus. Chest/axilla: Normal chest wall appearance and motion. Nontender with no deformity. No lesions are appreciated. Cardiovascular: Regular rate and rhythm with a normal S1 and S2. No gallops, murmurs, or rubs. Normal PMI, no JVD. No pulse deficits. Respiratory: Lungs have equal breath sounds bilaterally, clear to auscultation and percussion. No rales, rhonchi or wheezes noted. No increased work of breathing, no retractions or nasal flaring. Back: No spinal tenderness. No costovertebral tenderness. Full range of motion. Skin: Warm, dry with normal turgor. Normal color with no rashes, no lesions, and no evidence of cellulitis. MS/ Extremity: Pulses equal, no cyanosis. Neurovascular intact. Full, normal range of motion. Neuro: Awake and alert, GCS 15, oriented to person, place, time, and situation. Cranial nerves II-XII grossly intact. Motor strength 5/5 in all extremities. Sensory grossly intact. Cerebellar exam normal. Normal gait. Psych: Awake, alert, with orientation to person, place and time. Behavior, mood, and affect are within normal limits. 04:36 Abdomen/GI: Inspection: distension, that is mild, in the right upper quadrant, left upper quadrant, right lower quadrant and left lower quadrant, Liver: no appreciated palpable abnormalities, Hernia: not appreciated, tenderness, that is moderate. Vital Signs: 01:44 BP 123 / 81; Pulse 67; Resp 18; Temp 98.6; Pulse Ox 97% ; Weight 77.11 kg; Height 5 ft. tw5 8 in. (172.72 cm); Pain 9/10; 03:00 BP 127 / 84; Pulse 69; Resp 18; Temp 98; Pulse Ox 97% ; Pain 5/10; pf1 03:45 BP 141 / 73; Pulse 83; Resp 18; Temp 98; Pulse Ox 95% ; Pain 5/10; pf1 04:45 BP 142 / 88; Pulse 76; Resp 18; Temp 98.1; Pulse Ox 99% ; Pain 5/10; pf1 05:30 BP 109 / 69; Pulse 89; Resp 1; Pulse Ox 95% ; Pain 5/10; pf1 06:31 BP 133 / 88; Pulse 83; Resp 18; Temp 98.2; Pulse Ox 96% ; Pain 5/10; pf1 01:44 Body Mass Index 25.85 (77.11 kg, 172.72 cm) tw5 MDM: 01:48 Patient medically screened. cale 04:40 Differential diagnosis: nonspecific abdominal pain, non-specific abd pain, urinary cale tract infection. Data reviewed: vital signs, nurses notes, lab test result(s), CBC, electrolytes, hepatic panel, urinalysis. Data interpreted: monitor car operator: rate is 83 beats/min, rhythm is regular, Pulse oximetry: on room air is 95 %. Counseling: I had a detailed discussion with the patient and/or guardian regarding: the historical points, exam findings, and any diagnostic results supporting the discharge/admit diagnosis, lab results, radiology results, the need for outpatient follow up, for definitive care, a general surgeon. 08/25 01:49 Order name: CBC with Diff; Complete Time: 02:55 [facility] 08/25 01:49 Order name: CMP; Complete Time: 04:35 [facility] 08/25 01:49 Order name: Lipase; Complete Time: 04:35 [facility] 08/25 01:49 Order name: Urine Microscopic Only; Complete Time: 02:55 [facility] 08/25 01:49 Order name: CT Abd/Pelvis - IV Contrast Only [facility] 08/25 03:21 Order name: Urine Dipstick-Ancillary; Complete Time: 04:35 [facility] 08/25 01:49 Order name: IV Saline Lock; Complete Time: 02:45 [facility] 08/25 01:53 Order name: Abdomen [facility] 08/25 04:35 Order name: US Scrotum Testicles [facility] 08/25 01:49 Order name: Labs collected and sent; Complete Time: 02:46 [facility] 08/25 01:49 Order name: Urine Dipstick-Ancillary (obtain specimen); Complete Time: 06:01 [facility] Administered Medications: 02:50 Drug: NS 0.9% 1000 ml Route: IV; Rate: 1 bolus; Site: right antecubital; pf1 03:35 Follow up: Response: No adverse reaction; IV Status: Completed infusion; IV Intake: pf1 1000ml 02:50 Drug: Pepcid (famotidine) 20 mg Route: IVP; Site: right antecubital; pf1 03:36 Follow up: Response: No adverse reaction pf1 02:50 Drug: Zofran (Ondansetron) 4 mg Route: IVP; Site: right antecubital; pf1 03:36 Follow up: Response: No adverse reaction pf1 02:50 Drug: morphine 4 mg Route: IVP; Infused Over: 4 mins; Site: right antecubital; pf1 03:38 Follow up: Response: No adverse reaction; Pain is decreased pf1 06:15 Drug: LevOfloxacin 750 mg Route: PO; pf1 06:29 Follow up: Response: No adverse reaction pf1 Disposition Summary: 08/25/22 05:25 Discharge Ordered Location: Home cale Problem: new cale Symptoms: have improved cale Condition: Stable cale Diagnosis - Hydrocele, unspecified cale - Abdominal tenderness - post op(08/25/22 05:25) cale - Epididymitis cale Followup: cale - With: Private Physician - When: 2 - 3 days - Reason: Recheck today's complaints, Continuance of care, Re-evaluation by your physician Followup: cale - With: - When: 2 - 3 days - Reason: Recheck today's complaints, Continuance of care, Re-evaluation by your physician Followup: cale - With: Daron Levine MD - When: 2 - 3 days - Reason: Recheck today's complaints, Re-evaluation by your physician Discharge Instructions: - Discharge Summary Sheet cale - Abdominal Pain, Adult cale - Abdominal Pain, Adult, [id number] cale - Hydrocele, Adult cale - Epididymitis [facility] Forms: - Medication Reconciliation Form [facility] - Thank You Letter cale - Antibiotic Education cale - Prescription Opioid Use [facility] Prescriptions: - Zofran 4 mg Oral Tablet - take 1 tablet by ORAL route every 12 hours As needed; 20 tablet; Refills: 0, [facility] Product Selection Permitted - dicyclomine 20 mg Oral Tablet - take 1 tablet by ORAL route 4 times per day; 28 tablet; Refills: 0, Product [facility] Selection Permitted - levofloxacin 500 mg Oral Tablet - take 1 tablet by ORAL route once daily for 10 days; 10 tablet; Refills: 0, [facility] Product Selection Permitted Signatures: Dispatcher [employer] Manohar Conrad MD MD cha Wood, Tiffany tw5 Lyn baxter RN RN pf1 Corrections: (The following items were deleted from the chart) 05:25 05:25 Abdominal tenderness cale madsen
--- NOTE | 2022-08-25 05:26 | ER ---
Nurse's Notes [facility] Name: Dominick Rae Age: 67 yrs Sex: Male : 1955 Arrival Date: 08/25/2022 Time: 01:31 Bed 25 Private MD: Diagnosis: Abdominal tenderness-post op;Hydrocele, unspecified;Epididymitis Presentation: 08/25 01:44 Chief complaint: Patient states: "I had an abdominal hernia repair. I am having a lot tw5 of swelling and pain in the groin area. Dr. Sesay was the surgeon here.". Coronavirus screen: Vaccine status: Patient reports receiving the 1st dose of the Covid vaccine. Moderna. Ebola Screen: Patient negative for fever greater than or equal to 101.5 degrees Fahrenheit, and additional compatible Ebola Virus Disease symptoms Patient denies exposure to infectious person. Patient denies travel to an Ebola-affected area in the 21 days before illness onset. Initial Sepsis Screen: Does the patient meet any 2 criteria? No. Patient's initial sepsis screen is negative. Does the patient have a suspected source of infection? Yes: Skin breakdown/wound. Risk Assessment: Do you want to hurt yourself or someone else? Patient reports no desire to harm self or others. Onset of symptoms was August 24, 2022 at 10:00. 01:44 Acuity: MIMA 3 tw5 01:44 Method Of Arrival: Wheelchair tw5 Triage Assessment: 01:46 General: Appears uncomfortable, Behavior is calm, cooperative, appropriate for age. tw5 Pain: Complains of pain in right testicle Pain currently is 9 out of 10 on a pain scale. Historical: - Allergies: 01:46 PENICILLINS; tw5 - Home Meds: 01:46 None [Active]; tw5 - PMHx: 01:46 None; tw5 - PSHx: 01:46 Appendectomy; hernia repair; tw5 - Immunization history:: Flu vaccine is not up to date. - Social history:: Smoking status: Patient reports the use of cigarette tobacco products, denies chronic smoking, but will smoke occasionally. - Family history:: not pertinent. Screenin:47 Abuse screen: Denies threats or abuse. Nutritional screening: No deficits noted. pf1 Tuberculosis screening: No symptoms or risk factors identified. Fall Risk None identified. IV access (20 points). Assessment: 02:00 General: Appears in no apparent distress. uncomfortable, well groomed, well developed, pf1 Behavior is cooperative, appropriate for age, anxious. Pain: Complains of pain in right testicle Pain currently is 10 out of 10 on a pain scale. 02:00 Neuro: No deficits noted. Cardiovascular: No deficits noted. Heart tones S1 S2 present pf1 Capillary refill < 3 seconds. Respiratory: No deficits noted. Breath sounds are clear bilaterally. GI: No deficits noted. : No deficits noted. EENT: No deficits noted. Derm: Bruising that is dark purple, bilateral testicular region with swelling to right testicle. Vital Signs: 01:44 BP 123 / 81; Pulse 67; Resp 18; Temp 98.6; Pulse Ox 97% ; Weight 77.11 kg; Height 5 ft. tw5 8 in. (172.72 cm); Pain 9/10; 03:00 BP 127 / 84; Pulse 69; Resp 18; Temp 98; Pulse Ox 97% ; Pain 5/10; pf1 03:45 BP 141 / 73; Pulse 83; Resp 18; Temp 98; Pulse Ox 95% ; Pain 5/10; pf1 04:45 BP 142 / 88; Pulse 76; Resp 18; Temp 98.1; Pulse Ox 99% ; Pain 5/10; pf1 05:30 BP 109 / 69; Pulse 89; Resp 1; Pulse Ox 95% ; Pain 5/10; pf1 06:31 BP 133 / 88; Pulse 83; Resp 18; Temp 98.2; Pulse Ox 96% ; Pain 5/10; pf1 01:44 Body Mass Index 25.85 (77.11 kg, 172.72 cm) tw5 ED Course: 01:31 Patient arrived in ED. [id number] 01:46 Triage completed. tw5 01:46 Arm band placed on right wrist. tw5 01:48 Manohar Sharma MD is Attending Physician. [facility] 02:30 Patient has correct armband on for positive identification. Placed in gown. Bed in low pf1 position. Call light in reach. 02:31 Lyn baxter, TALAT is Primary Nurse. pf1 02:40 No provider procedures requiring assistance completed. Inserted saline lock: 20 gauge pf1 in right antecubital area, using aseptic technique. Blood collected. 03:43 Abdomen In Process Unspecified. EDMS 05:03 US Scrotum Testicles In Process Unspecified. EDMS 05:25 Cody Sesay MD is Referral Physician. cale 06:13 Daron Levine MD is Referral Physician. cale 06:32 IV discontinued, intact, bleeding controlled, No redness/swelling at site. Pressure pf1 dressing applied. Administered Medications: 02:50 Drug: NS 0.9% 1000 ml Route: IV; Rate: 1 bolus; Site: right antecubital; pf1 03:35 Follow up: Response: No adverse reaction; IV Status: Completed infusion; IV Intake: pf1 1000ml 02:50 Drug: Pepcid (famotidine) 20 mg Route: IVP; Site: right antecubital; pf1 03:36 Follow up: Response: No adverse reaction pf1 02:50 Drug: Zofran (Ondansetron) 4 mg Route: IVP; Site: right antecubital; pf1 03:36 Follow up: Response: No adverse reaction pf1 02:50 Drug: morphine 4 mg Route: IVP; Infused Over: 4 mins; Site: right antecubital; pf1 03:38 Follow up: Response: No adverse reaction; Pain is decreased pf1 06:15 Drug: LevOfloxacin 750 mg Route: PO; pf1 06:29 Follow up: Response: No adverse reaction pf1 Medication: 03:47 VIS not applicable for this client. pf1 Intake: 03:35 IV: 1000ml; Total: 1000ml. pf1 Outcome: 05:25 Discharge ordered by . cale 06:32 Discharged to home ambulatory. pf1 06:32 Condition: improved 06:32 Discharge instructions given to patient, Instructed on discharge instructions, follow up and referral plans. medication usage, Demonstrated understanding of instructions, follow-up care, medications, Prescriptions given X 3. 06:33 Patient left the ED. pf1 Signatures: Dispatcher [employer] EDNC Manohar Sharma MD MD cha Wood, Tiffany tw5 Nahed Mcneil6 Lyn baxter, RN RN pf1 Corrections: (The following items were deleted from the chart) 03:46 03:39 General: Appears in no apparent distress. uncomfortable, well groomed, well pf1 developed, Behavior is cooperative, appropriate for age, anxious, pf1 03:46 03:39 Pain: Complains of pain in right testicle Pain currently is 10 out of 10 on a pf1 pain scale. pf1
[2022-08-25] MEDS ORDERED: levoFLOXacin 750 MG TAB ONE (06:15)
[2022-08-25 07:08] VITALS: BP 133/88; TEMP 98.2; O2SAT 96
--- NOTE | 2022-08-25 11:30 | RAD REPORT ---
EXAM DESCRIPTION: CT ABDOMEN PELVIS WITH IV CONTRAST Abdominal pain, post-op COMPARISON: 08/04/2022. TECHNIQUE: CT ABDOMEN PELVIS WITH IV CONTRAST on 08/25/2022 1:49 AM SPOUTER This exam was performed according to our departmental dose-optimization program, which includes autom ated exposure control, adjustment of the mA and/or kV according to patient size and/or use of iterati ve reconstruction technique. FINDINGS: Lower lungs are clear. Abdomen: The liver is normal in appearance. There is no biliary dilatation. Gallbladder is normal in appearance. The pancreas and spleen are normal in appearance. Adrenal glands are normal. Upper pole s lightly complex cystic lesion within the left kidney measures 4.3 cm. There is no hydronephrosis. Abdominal aorta is mildly atherosclerotic measuring up to 2.8 cm. There is small amount of free intra peritoneal air. There is no retroperitoneal adenopathy. There is air throughout the right retroperito neum as well as within the abdominal wall. Pelvis: There is severe diverticulosis of the sigmoid colon. Right colon resection was performed. Uri nary bladder is unremarkable. There is no free fluid. There are small fat-containing inguinal hernias . Skeleton: There are no acute osseous findings. No suspicious bony lesions. IMPRESSION: Expected postoperative appearance. Indeterminate left renal lesion. Recommend nonemergent ultrasound. Electronically signed by: Jamin Villeda MD 08/25/2022 5:02 AM SPOUTER Due to temporary technical issues with the PACS/Fluency reporting system, reports are being signed by the in house radiologists without review as a courtesy to insure prompt reporting. The interpreting radiologist is fully responsible for the content of the report.
--- NOTE | 2022-08-25 15:04 | RAD REPORT ---
EXAM DESCRIPTION: Ultrasound Scrotum COMPARISON: CT abdomen and pelvis 08/25/2022 CLINICAL HISTORY: [facility] MAIN Pain TECHNIQUE: Grayscale and color sonographic images of the scrotum were performed. FINDINGS: Right testicle: The right testicle measures 3.3 x 2.2 x 2.9 cm. No intratesticular mas s, calcification, or cyst is present. Testicular blood flow and echogenicity are normal. Small hy drocele. Small varicocele. Enlarged epididymis measuring up to 2.5 cm with heterogeneity. Left testicle: The left testicle measures 4.0 x 2.3 x 2.1 cm. No intratesticular mass, calcificat ion, or cyst is present. Testicular blood flow and echogenicity are normal. No hydrocele. No vari cocele. Nonvisualized epididymis. IMPRESSION: Enlarged right epididymis with heterogeneity, consistent with chronic enlargement or epi didymitis. Small right varicocele and small right hydrocele. Nonvisualized left epididymis. Electronically signed by: Ernie Sanchez MD 08/25/2022 5:50 AM [employer]BR[employer] ARTIST TECHNICAL Due to temporary technical issues with the PACS/Fluency reporting system, reports are being signed by the in house radiologists without review as a courtesy to insure prompt reporting. The interpreting radiologist is fully responsible for the content of the report.
== END 2022-08-25 06:33 | disposition home or self-care (01) ==
LOC: ER 01:29
DX: N43.3 Hydrocele, unspecified (principal); N45.1 Epididymitis; F17.210 Nicotine dependence, cigarettes, uncomplicated; Z98.890 Other specified postprocedural states; Z88.0 Allergy status to penicillin
CPT/HCPCS: 96361; 85025; 36415; 83690; 80053; 74177; 76870; 96375; 96374; 99284; Q9967; J7030; J2405; 81003; 81015

== ENCOUNTER 2023-04-11 06:20 | Day surgery (SDC) | payer OTHER ==
[2023-04-11] MEDS ORDERED: Ringers Lactate 1,000 ML IV ONE (06:46)
[2023-04-11] MEDS ORDERED: EPINEPHRINE/PF 1 MG/ML AMP ONE (07:18)
[2023-04-11] MEDS ORDERED: propofoL 200 MG/20 ML VIAL IV ONE ×2 (07:21)
[2023-04-11] MEDS ORDERED: LIDOCAINE 1% MPF 5 ML VIAL ONE (07:21)
[2023-04-11] MEDS ORDERED: GLYCOPYRROLATE 0.2 MG/ML SYR ONE (07:21)
[2023-04-11] MEDS ORDERED: ONDANSETRON 4 MG/2 ML VIAL ONE (07:45)
[2023-04-11 08:37] VITALS: TEMP 97.4
[2023-04-11 08:50] VITALS: BP 104/78; O2SAT 100
== END 2023-04-11 08:51 | disposition home or self-care (01) ==
LOC: OR 06:20
PROVIDERS: ATTEND Surgery
PROC: 0DBK8ZX Excision of Ascending Colon, Via Natural or Artificial Opening Endoscopic, Diagnostic (ICD-10-PCS; principal; 2023-04-11 07:30)
DX: K59.00 Constipation, unspecified (principal); K57.30 Diverticulosis of large intestine without perforation or abscess without bleeding; K64.4 Residual hemorrhoidal skin tags; K64.8 Other hemorrhoids; K63.5 Polyp of colon
CPT/HCPCS: 88305; 45384; J2704; J2001; J2405; J7120; J0171

== ENCOUNTER → 2023-11-04 | Emergency (ER) | payer OTHER ==
--- NOTE | 2023-11-04 19:18 | RAD REPORT ---
EXAM DESCRIPTION: US - Extremity Venous Uni Ltd - 11/04/2023 7:05 pm CLINICAL HISTORY: pain COMPARISON: None. TECHNIQUE: Real-time sonographic evaluation of the left lower extremity deep venous system was perfo rmed. FINDINGS: Normal compressibility, flow augmentation, phasic flow and spontaneous flow is identified in the left lower extremity deep venous system. No intraluminal filling defects seen. IMPRESSION: No DVT in the left lower extremity.
--- NOTE | 2023-11-04 19:19 | RAD REPORT ---
EXAM DESCRIPTION: CTAbdomen Pelvis Wo Contrast - 11/04/2023 7:03 pm CLINICAL HISTORY: groin pain, recent kidneysurgery COMPARISON: Abdomen Pelvis W Contrast dated 08/25/2022; Abdomen Pelvis W Contrast dated 2; CT ABD PELVIS W CONTRAST dated 12/27/2011 TECHNIQUE: CT of the abdomen and pelvis was performed. All CT scans are performed using dose optimization technique as appropriate and may include automated exposure control or mA/KV adjustment according to patient size. FINDINGS: Lower chest: Aortic valve calcifications. Small hiatal hernia. Liver: No acute abnormality or suspicious lesions. Biliary: No biliary ductal dilatation. Stomach: No significant focal abnormality. Duodenum: No significant focal abnormality. Pancreas: No significant abnormality. Spleen: No significant abnormality. Adrenal: No suspicious lesions. Kidney/ureter: Surgical changes from recent partial left nephrectomy with low-density fluid collectio n at the surgical bed measuring 11.5 x 6.7 x 6.8 cm. No hydronephrosis. Retroperitoneum: No retroperitoneal adenopathy. Vascular: No aneurysm. Atherosclerosis. Bowel: Appendectomy. No bowel obstruction.. Diverticulosis. No evidence of acute diverticulitis. Peritoneum: No ascites or free air. Fat containing inguinal hernias. Bladder: Grossly unremarkable. Reproductive: No adnexal masses. Bones: No acute fracture. Other: n/a IMPRESSION: Surgical changes from prior partial left nephrectomy with moderate sized low-density flu id collection at the nephrectomy site. The fluid is of indeterminate sterility. It could represent a postoperative seroma or urinoma. Abscess less likely as the wall does not appear thick nor is there a ny surrounding inflammatory changes.
[2023-11-04 19:32] LABS: Specific Gravity 1.017 (1.005-1.030); Urine Bacteria None Seen /HPF (<20); Urine Bilirubin NEGATIVE (Negative); Urine Blood Negative (Negative); Urine Clarity Clear (Clear); Urine Color Colorless (Yellow); Urine Glucose NEGATIVE (Negative); Urine Protein NEGATIVE (Negative); Urine RBC None Seen /HPF (None Seen); Urine Urobilinogen Normal (Normal); Urine pH 5.5 (5.0-7.0)
[2023-11-04 20:42] LABS: Absolute Lymphocytes (CBC) 2.8 K/uL (0.7-4.9); Hematocrit 38.4 % (39.6-49.0); Lymphocytes % 35.9 % (15.3-44.8); MCV 90.6 fL (80-100); Platelets 476 thou/uL (152-406); RBC Red Blood Cell Count 4.23 M/uL (4.33-5.43)
[2023-11-04 20:48] LABS: Protime INR 0.95
[2023-11-04 20:53] LABS: Potassium 3.7 mEq/L (3.5-5.1)
--- NOTE | 2023-11-04 21:13 | EDPHYS ---
Physician Documentation [facility] Name: Dominick Rae Age: 68 yrs Sex: Male : 1955 Arrival Date: 11/04/2023 Time: 17:56 Bed 18 Private MD: ED Physician Donnie West HPI: 11/04 18:27 This 68 yrs old Male presents to ER via Ambulatory with complaints of Hip Pain, lower sb4 extremity pain. 18:27 patient states that he had a partial left nephrectomy 15 days ago due to a mass sb4 incidentally found on routine imaging. about 10 days ago, he started experiencing pain in his left side/groin as well as tightness/pain in his left calf. he denies any fever, chills, redness, shortness of breath, chest pain. Historical: - Allergies: 18:07 PENICILLINS; ko1 - PMHx: 18:07 None; ko1 - PSHx: 18:07 Appendectomy; hernia repair; ko1 - Immunization history:: Adult Immunizations up to date. - Social history:: Smoking status: Patient denies any tobacco usage or history of. ROS: 18:27 Constitutional: Negative for fever, chills, and weight loss, sb4 18:27 MS/extremity: Positive for pain, of the left leg, 18:27 All other systems are negative, Exam: 18:27 Constitutional: This is a well developed, well nourished patient who is awake, alert, sb4 and in no acute distress. Head/Face: Normocephalic, atraumatic. Eyes: Extra-ocular motions intact. Periorbital areas with no swelling, redness, or edema. ENT: Mucous membranes moist. Cardiovascular: Regular rate and rhythm with a normal S1 and S2. Respiratory: Lungs have equal breath sounds bilaterally, clear to auscultation and percussion. No rales, rhonchi or wheezes noted. No increased work of breathing, no retractions or nasal flaring. Abdomen/GI: Soft, non-tender, no distension. Skin: Warm, dry with normal turgor. Normal color with no rashes, no lesions, and no evidence of cellulitis. MS/ Extremity: Pulses equal, no cyanosis. Neurovascular intact. Full, normal range of motion. 18:27 Abdomen/GI: incision sites left anterior abdomen without any secondary signs of infection, Vital Signs: 18:07 BP 140 / 100; Pulse 87; Resp 16; Temp 98.7; Pulse Ox 98% on R/A; ko1 20:59 BP 128 / 89; Pulse 75; Resp 16; Pulse Ox 99% ; bp MDM: 18:14 Patient medically screened. sb4 18:27 Differential diagnosis: DVT, UTI, stone, muscle strain. sb4 21:14 Data reviewed: vital signs, nurses notes, lab test result(s), radiologic studies, I sb4 have discussed the patient's presentation/case with the attending Emergency Department Physician;. Counseling: I had a detailed discussion with the patient and/or guardian regarding the historical points, exam findings, and any diagnostic results supporting the discharge/admit diagnosis, lab results, radiology results, the need to transfer to another facility, for higher level of care, [facility] does not immediately have the required specialist. 21:53 Management of patient was discussed with the following: Gallery [employer] Museum Curator: orthodox urologist 4 correctional probation officer, Dr. Strong, agrees to consult. 22:20 Management of patient was discussed with the following: Hospitalist: Dr. Jackson, 4 hospitalist, accepts patient. 11/04 18:19 Order name: UAM; Complete Time: 19:33 4 11/04 19:33 Order name: Basic Metabolic Panel; Complete Time: 20:54 4 11/04 19:33 Order name: CBC with Diff; Complete Time: 20:44 sb4 11/04 19:33 Order name: Type And Screen; Complete Time: 21:14 sb4 11/04 19:33 Order name: Blood Culture Adult (2) 4 11/04 19:33 Order name: Lactate w/ 2H reflex if indic.; Complete Time: 21:11 sb4 11/04 19:33 Order name: PT-INR; Complete Time: 20:48 sb4 11/04 19:33 Order name: Ptt, Activated; Complete Time: 20:48 4 11/04 18:19 Order name: CT Abd/Pelvis - Without Contrast; Complete Time: 19:22 sb4 11/04 18:19 Order name: Extremity Venous Uni Ltd US; Complete Time: 19:22 sb4 11/04 19:33 Order name: Labs collected and sent; Complete Time: 20:22 sb4 Administered Medications: No medications were administered Disposition: 22:45 Co-signature as Attending Physician, Donnie West MD I agree with the assessment sp4 and plan of care. I reviewed the patient's care provided by Advanced Practice Provider \T\ agree w/ the diagnosis \T\ care plan. I personally saw the pt \T\ performed a substantive portion of the visit, incldng all aspects of the (History/Exam/Medical Decision Making). Disposition Summary: 11/04/23 21:12 Transfer Ordered Notes: Transfer Location: [facility] sb4 Reason: Higher level of care sb4 Condition: Fair sb4 Problem: new sb4 Symptoms: are unchanged sb4 Accepting Physician: Dr. David Jackson(11/04/23 23:24) vc1 Diagnosis - post operative partial nephrectomy seroma vs urinoma sb4 Forms: - Medication Reconciliation Form sb4 - SBAR form sb4 Signatures: Dispatcher [employer] EDMS Suzanna Concepcion RN RN vc1 Amira Germain RN RN ko1 Nancy Fox, PA-C PA-C sb4 Donnie West MD MD sp4 Corrections: (The following items were deleted from the chart) 19:48 18:27 patient states that he had a cyst removed from his left kidney 15 days ago. about sb4 10 days ago, he started experiencing pain in his left side and groin as well as tightness/pain in his left calf. he denies any fever, chills, redness, shortness of breath, chest pain. sb4 22:21 21:12 dr. kim sb4 sb4 23:24 22:21 Dr. David Jackson sb4 vc1
--- NOTE | 2023-11-04 21:13 | ER ---
Nurse's Notes [facility] Name: Dominick Rae Age: 68 yrs Sex: Male : 1955 Arrival Date: 11/04/2023 Time: 17:56 Bed 18 Private MD: Diagnosis: post operative partial nephrectomy seroma vs urinoma Presentation: 11/04 18:06 Chief complaint: Patient states: left lower leg, left hip and left groin pain. Started ko1 about 10 days ago. Had surgery on left kidney about 15 days ago to remove a mass. Coronavirus screen: At this time, the client does not indicate any symptoms associated with coronavirus-19. Ebola Screen: No symptoms or risks identified at this time. Initial Sepsis Screen: Does the patient meet any 2 criteria? No. Patient's initial sepsis screen is negative. Does the patient have a suspected source of infection? No. Patient's initial sepsis screen is negative. Risk Assessment: Do you want to hurt yourself or someone else? Patient reports no desire to harm self or others. Onset of symptoms was November 04, 2023. 18:06 Method Of Arrival: Ambulatory ko1 18:06 Acuity: MIMA 3 ko1 Triage Assessment: 18:07 General: Appears in no apparent distress. Behavior is calm, cooperative, appropriate ko1 for age. Pain: Complains of pain in left groin, left hip and left lower leg/ankle. Historical: - Allergies: 18:07 PENICILLINS; ko1 - PMHx: 18:07 None; ko1 - PSHx: 18:07 Appendectomy; hernia repair; ko1 - Immunization history:: Adult Immunizations up to date. - Social history:: Smoking status: Patient denies any tobacco usage or history of. Screenin:16 [facility] ED Fall Risk Assessment (Adult) History of falling in the last 3 months, bp including since admission No falls in past 3 months (0 pts). Abuse screen: Denies threats or abuse. Denies injuries from another. Nutritional screening: No deficits noted. Tuberculosis screening: No symptoms or risk factors identified. Assessment: 18:16 General: SEE TRIAGE NOTE. bp 19:30 Reassessment: Patient appears in no apparent distress at this time. Patient is alert, bp oriented x 3, equal unlabored respirations, skin warm/dry/pink. 20:59 Reassessment: Patient appears in no apparent distress at this time. Patient is alert, bp oriented x 3, equal unlabored respirations, skin warm/dry/pink. 21:52 Reassessment: REPORT TO AYDEE GILLILAND. TRANSFER IN PROCESS. bp 23:19 Reassessment: Report given to TALAT Sheikh at [facility]. vc1 Vital Signs: 18:07 BP 140 / 100; Pulse 87; Resp 16; Temp 98.7; Pulse Ox 98% on R/A; ko1 20:59 BP 128 / 89; Pulse 75; Resp 16; Pulse Ox 99% ; bp ED Course: 18:02 Patient arrived in ED. ra3 18:03 Nancy Fox PA-C is PHCP. sb4 18:03 Vince Navarrete MD is Attending Physician. sb4 18:07 Triage completed. ko1 18:07 Arm band placed on right wrist. Patient placed in waiting room, Patient notified of ko1 wait time. 18:15 John Dominguez, TALAT is Primary Nurse. bp 18:16 Patient has correct armband on for positive identification. bp 19:03 CT Abd/Pelvis - Without Contrast In Process Unspecified. EDMS 19:07 Extremity Venous Uni Ltd US In Process Unspecified. EDMS 19:30 Inserted saline lock: 20 gauge in left antecubital area, using aseptic technique. Blood bp collected. 21:18 Initiated transfer to [facility], spoke with Sindhu Ramires. 21:20 Attending Physician role handed off by Vince Navarrete MD sb4 21:20 Donnie West MD is Attending Physician. sb4 22:06 Pt accepted for transfer to [facility] by Dr. David Jackson per Sindhu Ramires. Will call back with a bed assignment. 22:46 Sindhu Ramires with the transfer center called to give room assignment, Pt will go to [facility] Rm: [id number]. 22:48 EMS accepted for transport with an ETA \T\ [id number]. 23:20 Provided Education on: need for transfer. vc1 23:20 No provider procedures requiring assistance completed. Patient transferred, IV remains vc1 in place. Administered Medications: No medications were administered Medication: 18:16 VIS not applicable for this client. bp Outcome: 21:12 ER care complete, transfer ordered by MD. sb4 23:20 Transferred by ground EMS to [facility], Transfer form completed. X-rays vc1 sent w/ patient. 23:20 Condition: good 23:20 Instructed on the need for transfer, 23:24 Patient left the ED. vc1 Signatures: Dispatcher [employer] EDMS John Dominguez, RN RN Keturah Nelson Vanessa, RN RN vc1 Amira Germain RN RN Nancy Morton, CHAD PAElham sb4 Jayne Srivastava ra3
[2023-11-04 23:48] VITALS: BP 128/89; TEMP 98.7; O2SAT 99
== END ==
LOC: ER 17:56
DX: N99.843 Postprocedural seroma of a genitourinary system organ or structure following other procedure (principal); M79.662 Pain in left lower leg; Z90.5 Acquired absence of kidney; Z88.0 Allergy status to penicillin
CPT/HCPCS: 36415; 74176; 80048; 81001; 83605; 85025; 85610; 85730; 86850; 86900; 86901; 87040; 93971